=== PATIENT | female | born 1940 | race Caucasian/White ===

== ENCOUNTER → 2016-08-16 | Day surgery (SDC) | payer OTHER | END | disposition home or self-care (01) | LOC: FIMAGING 12:48 | PROVIDERS: ATTEND Radiology Diagnostic Radiology | PROC: 02HV33Z Insertion of Infusion Device into Superior Vena Cava, Percutaneous Approach (ICD-10-PCS; principal; 2016-08-16) | DX: T82.514A Breakdown (mechanical) of infusion catheter, initial encounter (principal); C50.012 Malignant neoplasm of nipple and areola, left female breast | CPT/HCPCS: 36578; 77001; C1751 ==

== ENCOUNTER 2017-08-30 12:33 | Emergency (ER) | payer OTHER ==
--- NOTE | 2017-08-30 13:03 | EDPHY ---
H & P Stated Complaint: cough/2 weeks with cp with coughing/hx of dvt on warfarin Time Seen by Provider: 08/30/17 13:02 HPI/ROS: CHIEF COMPLAINT: Chest pain, cough, history of lung cancer HISTORY OF PRESENT ILLNESS: The patient is referred to the emergency department by her oncologist for evaluation of chest pain. The patient reportedly has had a acute cough for the past 10 days. Over the past several days she has developed some sharp substernal and sternal discomfort. The patient does have a history of pulmonary embolism. She is currently anticoagulated. The patient also has a history of a SVC clot. The patient denies any fever, asymmetric calf pain or swelling. She denies any abdominal pain, nausea, vomiting or diarrhea. The patient reports that her pain is "1/10 " at rest and "15/10" with coughing. REVIEW OF SYSTEMS: A comprehensive 10 point review of systems is otherwise negative aside from elements mentioned in the history of present illness. Source: Patient - Personal History Current Tetanus/Diphtheria Vaccine: Yes - Medical/Surgical History Hx Chronic Respiratory Disease: Yes Hx Diabetes: No Hx Cardiac Disease: No Hx Renal Disease: No Hx Cirrhosis: No Hx Alcoholism: No Hx HIV/AIDS: No Hx Splenectomy or Spleen Trauma: No Other PMH: copd/lung cancer/dvt - Social History Smoking Status: Former smoker - Physical Exam Exam: General Appearance: Elderly female, no acute distress Eyes: Pupils equal and round no pallor or injection ENT, Mouth: Mucous membranes moist Respiratory: Decreased breath sounds right lung base, faint crackles, tenderness to palpation noted over the sternum and costochondral junction Cardiovascular: Regular rate and rhythm Gastrointestinal: Abdomen is soft and nontender, no masses, bowel sounds normal Neurological: 5/5 strength all 4 extremities Skin: Warm and dry, no rashes Musculoskeletal: Neck is supple nontender Extremities: symmetrical, full range of motion Constitutional: Initial Vital Signs Temperature (C) 36.8 C 08/30/17 12:46 Heart Rate 94 08/30/17 12:46 Respiratory Rate 22 H 08/30/17 12:46 Blood Pressure 142/78 H 08/30/17 12:46 O2 Sat (%) 84 L 08/30/17 12:46 O2 Delivery Mode Nasal Cannula O2 (L/minute) 1 Allergies/Adverse Reactions: alprazolam [From Xanax] Allergy (Verified 08/30/17 14:24) amoxicillin [From Augmentin] Allergy (Verified 08/30/17 14:24) cephalexin [From Keflex] Allergy (Verified 08/30/17 14:24) clarithromycin [From Biaxin] Allergy (Verified 08/30/17 14:24) clavulanic acid [From Augmentin] Allergy (Verified 08/30/17 14:24) fosinopril [From Monopril] Allergy (Verified 08/30/17 14:24) gentamicin Allergy (Verified 08/30/17 14:24) hydrochlorothiazide Allergy (Verified 08/30/17 14:24) losartan Allergy (Verified 08/30/17 14:24) metronidazole [From Flagyl] Allergy (Verified 08/30/17 14:24) Penicillins Allergy (Verified 08/30/17 14:24) triamterene Allergy (Verified 08/30/17 14:24) unknown Allergy (Uncoded 08/30/17 12:45) Home Medications: Medication Instructions Recorded Advair 250/50 (*) 08/30/17 Bystolic 08/30/17 Flonase Nasal Jones 08/30/17 Methotrexate 08/30/17 Omeprazole 08/30/17 Proair Hfa 08/30/17 Singulair 08/30/17 Warfarin Sodium 08/30/17 Medical Decision Making - Diagnostics EKG Interpretation: EKG: Complete interpretation has been separately recorded in the [facility] archive. Summary impression: Sinus rhythm, rate 73, no ischemic changes noted Imaging Results: Imaging Impressions Chest X-Ray 08/30/17 13:03 Impression: Stable x23 months.. No pneumonia identified. Chest/Thorax CTA 08/30/17 13:43 Impression: 1. No pulmonary embolic disease. 2. Small peripheral wedge of atelectasis with air bronchograms at the right base. 3. Severe diffuse emphysema without underlying pneumonia. 4. 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 5. Liver lesion of uncertain clinical significance. Is this a known partially treated metastasis? This was not identified on an ultrasound in October 2015. 6. Possible sternal and upper thoracic bone metastases. No pathologic fracture is identified. Results called to Dr. Jhony Becerra. General information for patients regarding this examination can be found at [email or web address]. If you have questions or comments about this report, please contact me at (hospital) or [phone] (cell). ED Course/Re-evaluation: The patient presents the ED for evaluation of substernal pain in the setting of a 2 week history of cough. I did review her case with her oncologist Dr. Hewitt who has requested a CT scan of the chest. The patient was noted to be hypoxemic in the emergency department. She does have oxygen at home. She corrects with 2 liters/minute nasal cannula. CT scan demonstrates no evidence of a pulmonary embolism or pneumonia. There are questionable lytic lesions noted in the sternum and thoracic spine. There is an indeterminate lesion noted in the liver. The patient was given a Lidoderm patch in the emergency department. She will be discharged with these medications. I have communicated the results of the CT scan to her oncologist Dr. Hewitt will defer to him for further workup. Differential Diagnosis: Differential diagnosis considered includes asthma, bronchitis, pneumonia, pulmonary embolism, sternal fracture, thoracic metastases - Data Points Laboratory Results: Laboratory Results 08/30/17 13:15 08/30/17 13:15 08/30/17 08/30/17 08/30/17 13:15 13:15 13:15 WBC 8.65 10^3/uL 10^3/uL (3.80-9.50) RBC 3.62 10^6/uL L 10^6/uL (4.18-5.33) Hgb 11.9 g/dL L g/dL (12.6-16.3) Hct 36.1 % L % (38.0-47.0) MCV 99.7 fL fL (81.5-99.8) MCH 32.9 pg pg (27.9-34.1) MCHC 33.0 g/dL g/dL (32.4-36.7) RDW 14.7 % % (11.5-15.2) Plt Count 219 10^3/uL 10^3/uL (150-400) MPV 9.5 fL fL (8.7-11.7) Neut % (Auto) 84.4 % H % (39.3-74.2) Lymph % (Auto) 6.9 % L % (15.0-45.0) [place] % (Auto) 6.6 % % (4.5-13.0) Eos % (Auto) 1.3 % % (0.6-7.6) Baso % (Auto) 0.5 % % (0.3-1.7) Nucleat RBC Rel Count 0.0 % % (0.0-0.2) Absolute Neuts (auto) 7.30 10^3/uL H 10^3/uL (1.70-6.50) Absolute Lymphs (auto) 0.60 10^3/uL L 10^3/uL (1.00-3.00) Absolute Monos (auto) 0.57 10^3/uL 10^3/uL (0.30-0.80) Absolute Eos (auto) 0.11 10^3/uL 10^3/uL (0.03-0.40) Absolute Basos (auto) 0.04 10^3/uL 10^3/uL (0.02-0.10) Absolute Nucleated RBC 0.00 10^3/uL 10^3/uL (0-0.01) Immature Gran % 0.3 % % (0.0-1.1) Immature Gran # 0.03 10^3/uL 10^3/uL (0.00-0.10) PT 43.1 SEC H SEC (12.0-15.0) INR 4.62 H (0.83-1.16) Sodium 141 mEq/L mEq/L (135-145) Potassium 4.1 mEq/L mEq/L (3.5-5.2) Chloride 102 mEq/L mEq/L (97-110) Carbon Dioxide 26 mEq/l mEq/l (22-31) Anion Gap 13 mEq/L mEq/L (8-16) BUN 22 mg/dL mg/dL (7-23) Creatinine 0.7 mg/dL mg/dL (0.6-1.0) Estimated GFR > 60 Glucose 94 mg/dL mg/dL (70-100) Calcium 8.8 mg/dL mg/dL (8.5-10.4) NT-Pro-B Natriuret Pep 759 pg/mL H pg/mL (0-450) Medications Given: Discontinued Medications Miscellaneous Medication (Icy Hot Lidocaine/Menthol 4%/1% Patch) 1 patch TD EDNOW ONE Stop: 08/30/17 14:28 Last Admin: 08/30/17 14:30 Dose: 1 patch Departure - Departure Disposition: Home, Routine, Self-Care Clinical Impression: Chest wall pain Condition: Good Instructions: Chest Wall Pain (ED) Additional Instructions: 1. Please schedule a follow-up appointment with Dr. Hewitt. 2. Lidocaine patches as prescribed. 3. Oxycodone as needed for severe pain. 4. Return to the ED for markedly worsening symptoms or other concerns. Referrals: Lisandra Hewitt MD [Primary Care Provider] - As per Instructions
--- NOTE | 2017-08-30 13:17 | CPEKG ---
Heart Rate: 73 RR Interval: 822 P-R Interval: 168 QRSD Interval: 68 QT Interval: 368 QTC Interval: 406 P [place]: 49 QRS [place]: 44 T Wave [place]: 46 EKG Severity - NORMAL ECG - EKG Impression: SINUS RHYTHM Electronically Signed By: Matthew Becerra 30-Aug-2017 14:59:53
[2017-08-30 13:18] LABS: PLATELET COUNT 219 10^3/uL (150-400)
[2017-08-30 13:30] LABS: INR 4.62 (0.83-1.16); PROTIME(PATIENT) 43.1 SEC (12.0-15.0)
[2017-08-30] MEDS ORDERED: IOPAMIDOL (ISOVUE 370) 100 ML BTL IV ONE (13:45)
[2017-08-30] MEDS ORDERED: LIDOCAINE 4%/MENTHOL 1% PATCH TD ONE (14:27)
[2017-08-30 14:49] VITALS: BP 110/70
[2017-08-30] MEDS ORDERED: PATCH REMOVAL 1 EA PATCH TD SCH (21:00)
== END 2017-08-30 15:41 | disposition home or self-care (01) ==
DX: R07.89 Other chest pain (principal); J44.9 Chronic obstructive pulmonary disease, unspecified; Z79.01 Long term (current) use of anticoagulants; Z85.118 Personal history of other malignant neoplasm of bronchus and lung; Z87.891 Personal history of nicotine dependence
CPT/HCPCS: 71046; 71275; 93005; 99285; Q9967